=== PATIENT | female | born 1960 | race Caucasian/White ===

== ENCOUNTER 2023-09-02 08:32 | Emergency (ER) | payer OTHER, SELFPAY ==
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
[2023-09-02 08:46] VITALS: BP 173/86; PULSE 87; RESP 16; TEMP 36.1; O2SAT 99; BMI 19.2
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
== END 2023-09-02 11:23 | disposition home or self-care (01) ==
PROVIDERS: Emergency Provider Emergency Medicine
DX: M25.521 Pain in right elbow (principal); S16.1XXA Strain of muscle, fascia and tendon at neck level, initial encounter; V73.5XXA Driver of bus injured in collision with car, pick-up truck or van in traffic accident, initial encounter; Y93.89 Activity, other specified; Y92.414 Local residential or business street as the place of occurrence of the external cause; Y99.0 Civilian activity done for income or pay
CPT/HCPCS: 73080; 99281; 99283

== ENCOUNTER 2024-04-26 09:59 | Emergency (ER) | payer OTHER, SELFPAY ==
--- NOTE | ~2024-04-26 | XR_ITS ---
EXAMINATION: XR LUMBOSACRAL SPINE CLINICAL INFORMATION: midline tenderness L1/L2 after fall COMPARISON: None available. TECHNIQUE: Three views of the lumbosacral spine. FINDINGS: No acute cortical disruption or malalignment. Osteopenia versus osteoporosis. No lytic or blastic lesions. Vascular complications. XR/XR lumbar spine 2-3V IMPRESSION: No acute fracture or trauma-related listhesis. Electronically signed by: Josef Rothman MD 04/26/2024 10:55 AM EDT
[2024-04-26 10:03] VITALS: BP 182/84; PULSE 84; RESP 16; TEMP 36.4; O2SAT 99; BMI 21.1
--- NOTE | 2024-04-26 10:19 | ED_ITS ---
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 Was at [employer] and fell onto right side. Denies head strike or loss of consciousness. She is not anticoagulated. Some radiation of pain to left upper leg. Expressing concern for fracture as she has history of osteoporosis. Denies saddle anesthesia, bowel or bladder incontinence. Using Tylenol at home for pain. BP elevated, however, patient did not take BP meds yet this am. complaint: Khari Onset (ago): day(s) Location: back Radiation: distal Severity: severe Quality: aching Related Data Previous Rx's ?Medication ?Instructions ?Recorded cyclobenzaprine 5 mg tablet 5 mg PO TID PRN muscle spasm #10 04/26/24 tabs lidocaine 5 % topical patch 1 patch topical DAILY #15 ea 04/26/24 Allergies Allergy/AdvReac Type Severity Reaction Status Date / Time pollen extracts [POLLEN] Allergy Unknown SNEEZE, Verified 04/26/24 10:04 EYE IRRITATION DUST Allergy Unknown COUGH, Uncoded 11/03/19 16:43 MIGRAINES Review of Systems Review of Systems: As per HPI Yes all other systems are reviewed and are negative Constitutional: Constitutional: Reports as per HPI [facility] Social History Social History Advance Directives: Yes Advance Directives Information Provided: Yes Advance Directives on File: No Physical Exam ED Vital Signs: Vital Signs - 24 hr 04/26/24 10:03 Temperature 97.6 F Pulse Rate 84 Respiratory Rate 16 Blood Pressure 182/84 H Pulse Oximetry 99 Oxygen Delivery Method Room Air BMI result Body Mass Index 21.1 Vital signs have been reviewed and appear to be correct. Blood pressure elevated, patient did not take BP meds this am. Heart rate normal. Respiratory rate normal. Temperature normal. Oxygen saturation normal. Const General: cooperative, healthy appearing and no acute distress Orientation/consciousness: oriented to person, oriented to place, oriented to time and patient oriented x3 Limitations: no limitations HENMT Head: Yes normocephalic and Yes atraumatic Ears: external ears normal General nose exam: Normal external nose present Face and sinus: Yes face symmetric Mouth: oropharynx normal and moist mucous membranes Throat: Yes uvula midline Eyes Pupils: Equal, round and reactive pupils present Neck Neck: Yes normal visual inspection and Yes supple Resp Effort & Inspection: normal respiratory effort and able to speak in complete sentences Auscultation: clear to auscultation bilaterally Cardio Rate: regular rate Rhythm: regular rhythm Heart sounds: S1 normal heart sound present and S2 normal heart sound present GI Palpation (GI): Soft to palpation and nontender Auscultation: normoactive bowel sounds General: Yes no CVA tenderness Back/Spine/Pelvis Back: no CVA tenderness Thoracic/Lumbar Spine: thoracic and lumbar spine normal to inspection, thoraco- lumbar ROM normal, straight leg raise negative bilaterally, pain with thoraco- lumbar ROM, No thoracic spinal tenderness and lumbar spinal tenderness at L1 and at L2 Pelvis: no pain with anterior-posterior compression and no pain with lateral compression Skin General skin exam: elasticity normal and turgor normal Neuro General: oriented to person, oriented to place, oriented to time, patient oriented x3, gait normal, tone normal, moves all extremities, Normal light touch and pain sensation, no focal motor deficits, CN's II-XI intact bilaterally and deep tendon reflexes 2+ bilaterally Cranial nerves: Yes Equal, round and reactive pupils present Cognition (Neuro): normal cognition Motor exam (neuro): 5/5 motor strength present throughout, Normal motor muscle tone present throughout and Motor abnormalities not present Extrem General: Yes full ROM, Yes no pedal edema and Yes no calf tenderness Psych Mental Status: mental status grossly normal Affect: normal affect Thought process: Normal thought process present Medical Decision Making Medical Decision Making MDM Narrative: Patient is a 63-year-old [place]ese speaking female presenting to the ED with complaint of lower back pain since a fall on Thursday. On exam patient is awake, A+Ox3, BP elevated, VS otherwise WNL, afebrile, normal neurological exam without focal deficits, physical exam findings as above. Given reported symptoms and physical exam findings, initial differential includes but is not limited to initial differential includes lumbar strain, lumbar radiculopathy, degenerative disc disease, disc herniation, spinal stenosis, spondylosis, vertebral fracture. Do not suspect malignancy/mass, SEA, cauda equina/cord compression. X-ray lumbar spine notable for no evidence of fracture or listhesis. My interpretation is in agreement with the radiologist's interpretation. Results discussed with patient and all questions answered. Will send prescriptions for topical lidocaine patches and flexeril, advised patient to continue using Tylenol and ibuprofen. Follow up with PCP as needed. Return precautions discussed. Patient verbalized understanding of and agreement with plan. In- person cooker pie filling was utilized for all interactions, assessments, and discussions. Differential Diagnosis Differential Diagnoses: The differential diagnosis associated with the presentation includes As per MDM Independent Interpretation I performed an independent interpretation of an: Plain X-Ray Interpretation: Lumbar x-ray is without evidence of fracture or listhesis. Radiology Impression Discussion of test interpretation with radiology: I have reviewed the radiologist's reading. Radiologist Impression: XR/XR lumbar spine 2-3V IMPRESSION: No acute fracture or trauma-related listhesis. External Record Review External record reviewed: Inpatient record, Office record and Outpatient record Prescription Management I considered prescription management with: Pain Medication Discharge Plan Discharge Clinical Impression: Strain of lumbar region Patient Disposition: Home, Self-Care Instructions: Low Back Strain (ED), Acute Low Back Pain (ED) Additional Instructions: You were evaluated in the emergency department today for back pain. Your evaluation did not show signs of medical conditions requiring emergent intervention at this time. Your x-ray did not show any fractures. We recommended that you use ibuprofen or Tylenol per package directions every 6 hours as needed for pain. If necessary, you can alternate these medications so that you take one medication every 3 hours. For instance, at noon take ibuprofen, then at 3:00 p.m. take Tylenol, then at 6:00 p.m. take ibuprofen. You have been prescribed a muscle relaxer called Flexeril (cyclobenzaprine) which you may take every 8 hours as needed for spasms. Do not drive, drink alcohol, or operate heavy machinery while taking this as it can cause drowsiness. You have been prescribed 5% topical lidocaine patches which you can wear for up to 12 hours in a 24 hour period. Do not apply heat directly over the patches. Please schedule an appointment for follow-up with your primary care physician this week for further evaluation of your symptoms. Return to the emergency department if you experience worsening back pain, difficulty walking, fevers, numbness, tingling, incontinence, groin numbness or tingling, or any other concerning symptoms. Prescriptions: New lidocaine 5 % adhesive patch,medicated 1 patch topical DAILY Qty: 15 0RF Rx Instructions: leave on most painful area for up to 12 hrs cyclobenzaprine 5 mg tablet 5 mg PO TID PRN (Reason: muscle spasm) Qty: 10 0RF Print Language: Guyanese
[2024-04-26 11:32] VITALS: BP 182/84; PULSE 84; RESP 16; TEMP 36.4; O2SAT 99
--- OUTSIDE RECORDS SUMMARY | 2024-04-26 12:32 | XMS_ITS | Patient Health Record ---
Author Organization [facility] Address [address] [address] Care Team Providers Care Waiter/Waitress Dining Car Name Role Phone VANDANA ALBERTO Primary Care Provider SHUBHAM Laguerre Unavailable [phone] JUDITH GALLEGOS Unavailable Unavailable Allergies No Known Allergies Reason For Referral No Information Medications Medication SIG (Take, Route, Frequency, Duration) Notes Start Date End Date Status Montelukast Sodium 10 MG 1 tablet Orally Once a day for 30 day(s) 02/19/2021 Active DuoNeb 0.5-2.5 (3) MG/3ML 3 ml Inhalatio n bid for 10 days 02/19/2021 Active NEBULIZER KIT ADULT as directed 02/19/2021 Active STIOLTO RESPIMAT 2.5MCG/2.5MCG 2 PUFFS I NHALATION ONCE DAILY Active Albuterol Sulfate HFA 108 MCG/ACT 1 puff as needed Inhalation every 4 hrs for 30 days 02/19/2021 Active hydroCHLOROthiazide 12.5 MG 1 capsule in the morning Orally Once a day Active Nebulizer/Tubing/Mouthpiece - as directe d Dx: J44.9 COPD 04/02/2021 Active Sleep Aid 25 MG 1 tablet at bedtime as needed Orally Once a day Active Losartan Potassium 25 MG 1 tablet Orally Once a day Active Social History Tobacco Use: Social History Observation Description Date Details (start date - stop date) Former Smoker NA - NA Tobacco use smoking smart form: Question Answer Notes Are you a: former smoker How long has it been since y ou last smoked? 5-10 years Additional Findings: Tobacco User Very h eavy cigarette smoker (40+ cigs/day) Alcohol Screening Smart Form: Question Answer Notes Did you have a drink containing alcohol in the p ast year? No Points 0 Interpretation Negative Problems Problem Type SNOMED Code ICD Code Onset Dates Problem Status W/U Status Risk Notes Problem 013368823 COPD exacerbatio n (J44.1) Active confirmed Problem 15125253 HTN (hypertension), benign (I10) Active confirmed Problem 40350287 Chronic obstructive pulmonary disease, unspecified COPD type (J44.9) Active confirmed Problem 685807526 Tobacco abuse, i n remission (F17.201) Active confirmed Problem 722624187 Insomnia, unspecified type (G47.00) Active confirmed Problem 584037552 History of asthm a (Z87.09) Active confirmed Problem 022088842 Multiple environmental allergies (Z91.09) Active confirmed Plan Of Treatment Pending Test Test Name Order Date Pulmonary Function Test (FULL TEST) 08/2020 [id number], Serum 01/22/2021 CT THORAX W/O CONTRAST 01/22/2021 Future Test Test Name Order Date CT CHEST NO CONTRAST 02/19/2021 Insurance Providers Payer Name Payer Address Payer Phone Subscriber Number Group Number Insured Name Patient Relationship to Insured Coverage Start Date Coverage End Date [facility] MEDICAID [address] [place] [address] [id number] Katty Menon Self - patient is the insured Medical (General) History Medical History History ICD Code asthma: Yes cancer, lung: No coronary artery disease: Yes emphysema: No obstructive sleep apnea: Yes Surgical History Surgery Date(Month/Year) LEFT LEG BREAST Hospitalization History Reason Date(Month/Year) *see surgery above
--- OUTSIDE RECORDS SUMMARY | 2024-04-26 12:32 | XMS_ITS | Clinical Summary ---
Author Organization [facility] Address [address] [place] [address] [address] [place] [address] Care Team Providers Care Director Account Management Name Role Phone Unavailable Primary Care Provider Unavailabl e Allergies Active Allergy Reactions Criticality Noted Date Comments Penicillin G Shortness of breath,Rash High 4 per pt no pcn allergy Medications cetirizine (ZyrTEC) 10 MG tablet TOME PARKER TABLETA TODOS LOS D 3 Active meloxicam (Mobic) 7.5 MG tablet Take 7.5 mg by mouth if needed each day. 3 Active Ventolin HFA 108 (90 Base) MCG/ACT inhaler INHALE 2 PUFFS INHALATION EVERY 6 HOURS 3 Active hydroCHLOROthia zide (HYDRODiuril) 25 MG tablet Take 25 mg by mouth in the morning. 3 Active Social History Tobacco Use Types Packs/Day Years Used Date Smoking Tobacco: Never Smokeless Tobacco: Never Tobacco Cessation:Counseling Given: Not Answered Comments Unknown Sex and Gender Information Value Date Recorded Sex Assigned at Female 02/17/2023 9:15 AM EST Legal Sex Female 2:33 PM EDT Gender Identity Female 02/17/2023 9:15 AM EST Sexual Orientation Straight 02/17/2023 9: 15 AM EST Last Filed Vital Signs Vital Sign Reading Time Taken Comments Blood Pressure 144/80 12/09/2023 9:26 AM EDT Pulse 74 11/05/2023 1:08 PM EDT Temperature - - Respiratory Rate - - Oxygen Saturation - - Inhaled Oxygen Concentration - - Weight - - Height - - Body Mass Index - - Plan of Treatment Upcoming Encounters Date Type Department Care Team (Late st Contact Info) Description 05/11/2024 2:00 PM EDT Office Visit [facility] [address] [place] [id number] [address] [place], [place] [id number] Health Maintenance Due Date Last Done Comments CT Colonography 1959 Colonoscopy 1959 Colorectal Cancer Screening 1959 Dental X-Ray: Bitewings 1959 Depression Screening 1959 FIT DNA/Cologuard 1959 FIT 1959 FOBT 1959 HIV Screening 1959 Lipid Panel 1959 SDOH Screening 1959 Sigmoidoscopy 1959 Alcohol/Substance Use Screening 1971 Hepatitis C Screening 10/27/1977 Pap Smear 10/27/1980 Cervical Cancer Screening 10/27/1989 HPV/Cotest 10/27/1989 Mammogram 1999 Zoster Vaccines (1 of 2) 10/27/2009 RSV Patients and Patients Aged 60 years or older (1 - Risk 60-74 years 1-dose series) 2019 COVID-19 Vaccine (3 - 2023- season) 2023 06/15/2020, 05/25/2020 Influenza Vaccine (#1) 2023 , 03/25/2023, 04/08/2012, Additional history exists Dental Oral Exam 05/05/2024 11/05/2023, 03/10/2023 Dental Prophylaxis 05/05/2024 11/05/2023 Tobacco Screening 12/09/2024 12/10/2023 Dental X-Ray: Full Mouth 03/11/2026 03/10/2023 DTaP/Tdap/Td Vaccines (3 - Td or Tdap) 09/04/2032 09/04/2022, 04/08/2012 Pneumococcal Vaccine: 50+ Years Completed 03/25/2023 HIB Vaccines Aged Out No longer eligi ble based on patient's age to complete this topic HPV Vaccines Aged Out No longer eligi ble based on patient's age to complete this topic Hepatitis A Vaccines Aged Out No long er eligible based on patient's age to complete this topic Hepatitis B Vaccines Aged Out No long er eligible based on patient's age to complete this topic IPV Vaccines Aged Out No longer eligi ble based on patient's age to complete this topic Meningococcal Vaccine Aged Out No chiquita kamryn eligible based on patient's age to complete this topic RSV under 20 months Aged Out No longe r eligible based on patient's age to complete this topic Rotavirus Vaccines Aged Out No longer eligible based on patient's age to complete this topic Procedures Procedure Name Priority Date/Time Associated Diagnosis Comments PROPHYLAXIS - ADULT Routine 11/05/2023 1:00 PM EDT PERIODIC ORAL EVALUATION - ESTABLISHED PATIENT Routine 11/05/2023 1:00 PM EDT PANORAMIC RADIOGRAPHIC IMAGE Routine 03/10/2023 10:00 AM EST from Last 3 Months or Most Recently Relevant to Health Maintenance Insurance [facility] [place] STAND AD[place]
== END 2024-04-26 11:33 | disposition home or self-care (01) ==
PROVIDERS: Emergency Provider Student in an Organized Health Care Education/Training Program; PCP Family Medicine
DX: M54.50 Low back pain, unspecified (principal); M79.661 Pain in right lower leg
CPT/HCPCS: 72100; 99282; 99283

== ENCOUNTER → 2024-04-26 10:36 | Outpatient (BNV) | payer OTHER, SELFPAY | PROVIDERS: Emergency Provider Student in an Organized Health Care Education/Training Program; PCP Family Medicine; Visit Provider Radiology Diagnostic Radiology | DX: M54.50 Low back pain, unspecified (principal) | CPT/HCPCS: 72100 ==